=== PATIENT | male | born 1940 | race American Indian/Alaskan Native ===

== ENCOUNTER 2017-08-24 09:05 | Day surgery (SDC) | payer MEDICARE ==
[2017-08-24] VITALS (8 sets, daily range): BP systolic 105–139; BP diastolic 61–74; PULSE 70–89; TEMP 97.2–97.6
[~2017-08-24] VITALS: Ht 177.8 cm; Wt 93.8 kg
[2017-08-24] MEDS ORDERED: NEURONTIN300 MG/CAP PO (09:27)
[2017-08-24] MEDS ORDERED: PRAVACHOL 40MG40 MG PO (09:27)
[2017-08-24] MEDS ORDERED: FLOMAX 0.40.4 MG/CAP PO (09:27)
[2017-08-24] MEDS ORDERED: PRINIVIL2.5 MG PO (09:28)
[2017-08-24] MEDS ORDERED: AMARYL 2MG T2 MG/TAB PO (09:28)
[2017-08-24] MEDS ORDERED: PROSCAR 5MG5 MG PO (09:29)
[2017-08-24] MEDS ORDERED: NORCO 325 MG-51 TAB PO (13:17)
== END 2017-08-24 15:50 | disposition home or self-care (01) ==
LOC: SDCO 09:05
DX: K40.90 Unilateral inguinal hernia, without obstruction or gangrene, not specified as recurrent (principal); E78.5 Hyperlipidemia, unspecified; I10 Essential (primary) hypertension; E11.42 Type 2 diabetes mellitus with diabetic polyneuropathy; J40 Bronchitis, not specified as acute or chronic; N40.1 Benign prostatic hyperplasia with lower urinary tract symptoms; Z90.49 Acquired absence of other specified parts of digestive tract; Z96.653 Presence of artificial knee joint, bilateral; Z79.84 Long term (current) use of oral hypoglycemic drugs; Z88.0 Allergy status to penicillin
CPT/HCPCS: C1781; J0690; J1100; J2405; J2704; J3010; J7120